=== PATIENT | female | born 1995 | race Caucasian/White ===

== ENCOUNTER → 2016-04-13 | Outpatient (CLI) | payer OTHER ==
[~2016-04-13] MED LIST: OXYC-57 PO; PRENTAB65 PO
[2016-04-13 17:35] LABS: URINE APPEARANCE CLOUDY (CLEAR); URINE BILIRUBIN NEG (NEG); URINE COLOR YELLOW; URINE EPITHELIAL CELL AUTO >30 /lpf (0-5); URINE NITRITE NEG (NEG); URINE PH 6.5 (4.5-7.5); URINE SPECIFIC GRAVITY 1.013 (1.000-1.030); UROBILINOGEN NEG (NEG)
[2016-04-13 17:39] LABS: MANUAL MICROSCOPIC REQUIRED? NO; REVIEW REQ? NO
== END | disposition home or self-care (01) ==
LOC: MERGE 16:52 → C.LABSPEC 16:52
PROVIDERS: ATTEND Obstetrics & Gynecology
DX: Z34.91 Encounter for supervision of normal pregnancy, unspecified, first trimester (principal)

== ENCOUNTER → 2016-04-14 | Outpatient (CLI) | payer OTHER ==
[2016-04-14 14:40] LABS: BASO % 0.4 %; BASO ABS # 0.04 K/uL (0-0.2); COMPLETE YES; EOS % 2.1 %; HEMATOCRIT 36.7 % (37-47); IG% 0.1 %; LYMPH % 18.9 %; LYMPH ABS # 1.87 K/uL (1.2-3.4); MEAN CELL VOLUME 85.3 fL (80-100); MEAN CORPUSCULAR HEMOGLOBIN 29.3 pg (25-34); MEAN CORPUSCULAR HGB CONC 34.3 g/dl (32-36); MONO % 5.6 %; NEUT % 72.9 %; PLATELET COUNT 218 K/uL (130-400); WHITE BLOOD COUNT 9.92 K/uL (4.8-10.8)
[2016-04-18 03:25] LABS: CHLAMYDIA TRACH RNA*** NOT DETECTED (NOT DETECTED); GC (NEIS GONORRHOEAE)RNA** NOT DETECTED (NOT DETECTED)
== END | disposition home or self-care (01) ==
LOC: C.LAB1850 12:54 → MERGE 12:54
PROVIDERS: ATTEND Obstetrics & Gynecology
DX: Z34.91 Encounter for supervision of normal pregnancy, unspecified, first trimester (principal)

== ENCOUNTER → 2016-05-19 | Outpatient (CLI) | payer OTHER ==
[2016-05-19 16:15] LABS: GTGD 50 Grams
[2016-05-22 14:34] LABS: AFP CONCENTRATION 27.7 NG/ML; AFP MULTIPLE OF MEDIAN 0.93; AFPTS GESTATIONAL AGE 16.6 WEEKS; AFPTS INSULIN DEP DIABETIC? NO; AFPTS MATERNAL WT 194 LBS; ALPHA-FETOPROTEIN RACE CAUCASIAN=W; HISTORY OF NTD NO; REPEAT SAMPLE? NO
== END | disposition home or self-care (01) ==
LOC: C.LAB1850 13:54 → MERGE 13:54
PROVIDERS: ATTEND Obstetrics & Gynecology
DX: Z34.92 Encounter for supervision of normal pregnancy, unspecified, second trimester (principal)

== ENCOUNTER → 2016-08-10 | Outpatient (CLI) | payer OTHER ==
[2016-08-10 16:01] LABS: HEMATOCRIT 33.9 % (37-47)
[2016-08-10 18:43] LABS: GTGD 50 Grams
== END | disposition home or self-care (01) ==
LOC: MERGE 14:42 → C.LAB1850 14:42
PROVIDERS: ATTEND Obstetrics & Gynecology
DX: Z34.93 Encounter for supervision of normal pregnancy, unspecified, third trimester (principal)

== ENCOUNTER → 2016-08-10 | Outpatient (CLI) | payer OTHER ==
[2016-08-10 18:12] LABS: URINE APPEARANCE CLEAR (CLEAR); URINE BILIRUBIN NEG (NEG); URINE COLOR YELLOW; URINE EPITHELIAL CELL AUTO 20-30 /lpf (0-5); URINE NITRITE NEG (NEG); URINE SPECIFIC GRAVITY 1.011 (1.000-1.030); UROBILINOGEN NEG (NEG)
[2016-08-10 18:21] LABS: MANUAL MICROSCOPIC REQUIRED? NO; REVIEW REQ? NO
== END | disposition home or self-care (01) ==
LOC: C.LABSPEC 16:28 → MERGE 16:28
PROVIDERS: ATTEND Obstetrics & Gynecology
DX: Z34.93 Encounter for supervision of normal pregnancy, unspecified, third trimester (principal)

== ENCOUNTER → 2016-08-21 | Outpatient (CLI) | payer OTHER | END | disposition home or self-care (01) | LOC: C.LAB1850 08:36 | PROVIDERS: ATTEND Obstetrics & Gynecology | DX: O28.1 Abnormal biochemical finding on antenatal screening of mother (principal) ==

== ENCOUNTER → 2016-10-05 | Outpatient (CLI) | payer OTHER | END | disposition home or self-care (01) | LOC: C.LABSPEC 14:57 | PROVIDERS: ATTEND Obstetrics & Gynecology | DX: Z34.83 Encounter for supervision of other normal pregnancy, third trimester (principal) ==

== ENCOUNTER 2016-10-27 05:28 | Inpatient (IN) | payer OTHER ==
--- NOTE | 2016-10-26 13:38 | HISTORY & PHYSICAL EXAMINATION ---
DATE OF ADMISSION: 10/27/2016 PRINCIPAL DIAGNOSES: 1. Intrauterine at 39 weeks. 2. History of prior section, requesting repeat section. PRINCIPAL PROCEDURE: Repeat low transverse cervical section. HISTORY OF PRESENT ILLNESS: The patient is a 21-year-old 2, para 1-0-0-1 white female, EDC of 10/30/2016, who presents for repeat section. Her prior section was done because of hypotension and distress. The section had been done under general anesthetic. This has been uncomplicated. PAST MEDICAL HISTORY: Significant for exercise-induced asthma and migraine headaches. PAST SURGICAL HISTORY: She had a cholecystectomy, tonsils and wisdom teeth removed and a section in 2013. ALLERGIES: She has no known drug allergies. MEDICATIONS: vitamins. OBSTETRICAL AND GYNECOLOGICAL HISTORY: No history of PID, VD or herpes. Pap smears are within normal limits. Periods are regular at every 28 days. She has had 1 in 2013, resulting in a section done under general anesthetic because of distress. That baby weighed 8 pounds 8 ounces. No complications after the surgery. HISTORY: Blood type is B positive. Antibody screen is negative. Rubella is immune. RPR is nonreactive. Hepatitis is negative. HIV is negative. Chlamydia and GC are negative. The 16-week Glucola was normal. The 28-week Glucola was elevated, but 2-hour glucose tolerance test was within normal limits. Anatomy scan was normal and complete. Hemoglobin at 28 weeks is 11.6 and hematocrit 33.9. GBS is negative. PHYSICAL EXAMINATION: GENERAL: She is a well-nourished and well-developed female in no apparent distress. LUNGS: Clear to auscultation. HEART: Regular rate and rhythm. No murmurs or gallops. ABDOMEN: Gravid and consistent with a term in size. There is no hepatosplenomegaly or masses palpable. She has a well-healed low transverse skin incision. EXTREMITIES: Without calf tenderness and trace edema. ASSESSMENT: A 21-year-old who presents for repeat section. Prior section was done emergently because of distress. Please see the orders for further directions.
[2016-10-26 14:46] VITALS: BMI 35.0
--- NOTE | 2016-10-26 15:05 | PAT Medication Instructions ---
Service Date Oct 26, 2016. Current Home Medication List Multivit-Min W/Fe-Fa (), 1 TAB PO QAM Medication Instructions For Your Scheduled Surgery - Hold the following medications the morning of surgery: Multivit-Min W/Fe-Fa (), 1 TAB PO QAM nothing to eat or drink after midnight If you have any questions please call us at [phone] or [phone] or [phone]
[2016-10-26 15:20] LABS: BASO % 0.1 %; BASO ABS # 0.01 K/uL (0-0.2); COMPLETE YES; EOS % 1.2 %; HEMATOCRIT 37.1 % (37-47); IG% 0.2 %; LYMPH % 15.8 %; LYMPH ABS # 1.49 K/uL (1.2-3.4); MEAN CELL VOLUME 85.7 fL (80-100); MEAN CORPUSCULAR HEMOGLOBIN 27.3 pg (25-34); MEAN CORPUSCULAR HGB CONC 31.8 g/dl (32-36); MONO % 5.9 %; NEUT % 76.8 %; PLATELET COUNT 185 K/uL (130-400); RED BLOOD COUNT 4.33 M/uL (4.2-5.4); WHITE BLOOD COUNT 9.42 K/uL (4.8-10.8)
[2016-10-27] VITALS (14 sets, daily range): BP systolic 102–105; BP diastolic 68–71; PULSE 82–84; TEMP 36.6; O2SAT 95–98; Ht 165.1 cm; Wt 97.7 kg
[~2016-10-27] VITALS: Ht 165.1 cm; Wt 97.7 kg
[~2016-10-27 05:28] MED LIST changes: +CEFAZOLIN IV 3,000 MG in DEXTROSE 5% 50ML IV SCH; -OXYC-57 PO
[2016-10-27] MEDS ORDERED: LACTATED RINGER'S 1000ML 1,000 ML IV SCH (06:00)
[2016-10-27] MEDS ORDERED: CITRIC ACID/SODIUM CITRATE 15 ML UDC PO SCH (06:00)
[2016-10-27 06:37] LABS: BASO % 0.3 %; BASO ABS # 0.03 K/uL (0-0.2); IG% 0.3 %; LYMPH % 12.4 %; LYMPH ABS # 1.45 K/uL (1.2-3.4); MEAN CELL VOLUME 84.4 fL (80-100); MEAN PLATELET VOLUME 12.1 fL (7.4-10.4); MONO % 5.5 %; NEUT % 80.5 %; PLATELET COUNT 194 K/uL (130-400); WHITE BLOOD COUNT 11.66 K/uL (4.8-10.8)
[2016-10-27 06:46] LABS: COMPLETE YES; MEAN CORPUSCULAR HGB CONC 33.2 g/dl (32-36)
--- NOTE | 2016-10-27 07:27 | History & Physical Bridge Note ---
H&P Re-Evaluation Bridge Note: I have examined the patient, reviewed the History & Physical and in the interval since the performance of the History & Physical I have noted the following changes of clinical significance: No changes noted
[2016-10-27] MEDS ORDERED: MoRPHine SULFATE PF 1 MG/ML 10 ML AMP/VIAL ONE (08:41)
[2016-10-27] MEDS ORDERED: OXYTOCIN INJ 10 UNITS/ML VIAL ONE (09:27)
[2016-10-27] MEDS ORDERED: EpHEDrine SULFATE INJ 50 MG/ML AMP ONE (09:27)
[2016-10-27] MEDS ORDERED: LABETALOL HCL IV 5 MG/ML 20ML IV PRN (09:45)
[2016-10-27] MEDS ORDERED: DIPHTHERIA/TETANUS/PERTUSSIS 0.5 ML SYR/VIAL IM. ONE (09:45)
[2016-10-27] MEDS ORDERED: FENTANYL CITRATE INJ 50 MCG/1 ML 2 ML VIAL IV PRN (09:45)
[2016-10-27] MEDS ORDERED: HYDROCORTISONE ACETATE 25 MG SUPP PR PRN (09:45)
[2016-10-27] MEDS ORDERED: MEPERIDINE HCL 25 MG/ML CARP IV PRN ×2 (09:45→11:00)
[2016-10-27] MEDS ORDERED: EpHEDrine SULFATE INJ 50 MG/ML AMP IV PRN ×2 (09:45→11:00)
[2016-10-27] MEDS ORDERED: SUPERCREAM 0.870 % 15GM JAR EXT PRN (09:45)
[2016-10-27] MEDS ORDERED: ONDANSETRON INJ 2 MG/ML 2 ML VIAL IV PRN ×2 (09:45→11:00)
[2016-10-27] MEDS ORDERED: SENNA 8.6 MG TAB PO PRN (09:45)
[2016-10-27] MEDS ORDERED: MAGNESIUM HYDROXIDE SUSP 30 ML UDC PO PRN (09:45)
[2016-10-27] MEDS ORDERED: ATROPINE SULFATE 0.1 MG/ML 5ML SYR IV PRN (09:45)
[2016-10-27] MEDS ORDERED: HYDROmorphone INJ 1 MG/ML SYR IV PRN (09:45)
[2016-10-27] MEDS ORDERED: BENZOCAINE 20% AER SPR 82.5 GM CAN EXT PRN (09:45)
[2016-10-27] MEDS ORDERED: LANOLIN OINT EXT PRN ×2 (09:45)
--- NOTE | 2016-10-27 10:09 | [facility] Operative Report ---
Operative Report Operative Date Oct 27, 2016. Pre-Operative Diagnosis Intrauterine . Desires repeat section. Post-Operative Diagnosis Same. Procedure(s) Performed Elective repeat low transverse section. Surgeon Dr. Davison Plug Shaper Hand Surgeon(s) Dr. Ca Estimated Blood Loss 600 Findings gravid uterus , tubes & ovaries are grossly normal. Fluids 2000 Specimens A. Placenta - hold B. Cord blood Drains John to straight drainage Anesthesia SAB Complication(s) None Disposition L&D I attest to the content of the Intraoperative Record and any orders documented therein. Any exceptions are noted below.
[2016-10-27] MEDS ORDERED: SODIUM CHLORIDE 0.9% 1000ML 1,000 ML IV PRN (10:49)
[2016-10-27] MEDS ORDERED: NALOXONE HCL INJ 1 MG in SODIUM CHLORIDE 0.9% 1000ML 1,000 ML IV PRN (10:49)
[2016-10-27] MEDS ORDERED: NALOXONE HCL INJ 0.08 MG in SYRINGE 1.8 ML IV PRN (10:49)
[2016-10-27] MEDS ORDERED: LACTATED RINGER'S 1000ML 500 ML IV PRN (10:49)
[2016-10-27] MEDS ORDERED: METOCLOPRAMIDE HCL INJ 20 MG in SODIUM CHLORIDE 0.9% 50ML 50 ML IV PRN (11:00)
[2016-10-27] MEDS ORDERED: NO NARCOTICS OR SEDATIVES SCH (11:00)
[2016-10-27] MEDS ORDERED: NALOXONE HCL 0.4 MG/1 ML VIAL/CARP IV PRN (11:00)
[2016-10-27] MEDS ORDERED: DiphenhydrAMINE HCL 50 MG/ML VIAL IV PRN ×2 (11:00)
[2016-10-27] MEDS ORDERED: KETOROLAC TROMETHAMINE 30 MG/ML VIAL IV. PRN (11:00)
[2016-10-27] MEDS ORDERED: MoRPHine SULFATE 2 MG/ML CARP IV PRN (11:00)
[2016-10-27] MEDS ORDERED: MoRPHine SULFATE PF 1 MG/ML 10 ML AMP/VIAL EPI PRN (11:00)
[2016-10-27] MEDS ORDERED: NALBUPHINE HCL INJ 10 MG/ML AMP IV PRN (11:00)
[2016-10-27] MEDS: SIMETHICONE 80 MG CHEW PO SCH ×3 (12:13→20:09)
[2016-10-27] MEDS: OXYTOCIN INJ 20 UNITS in LACTATED RINGER'S 1000ML 1,000 ML IV SCH ×2 (12:22→20:22)
--- NOTE | 2016-10-27 13:02 | Anesthesiology Progress Note ---
Anesthesia Post Op Note Date & Time Oct 27, 2016 at 13:02 Vital Signs Pain Intensity: 3.0 Notes Mental Status: alert / awake / arousable, participated in evaluation Pt Amnestic to Procedure: Yes Nausea / Vomiting: adequately controlled Pain: adequately controlled Airway Patency, RR, SpO2: stable & adequate BP & HR: stable & adequate Hydration State: stable & adequate Neuraxial Anesthesia: was administered, sensory block is resolving Anesthetic Complications: no major complications apparent
--- NOTE | 2016-10-27 16:02 | OPERATIVE REPORT ---
DATE OF OPERATION: 10/27/2016 SURGEON: Bere Gilmore MD SHOE FOLDER: Dr. Sandie Ca, PGY1. PREOPERATIVE DIAGNOSES: Intrauterine at 39 weeks, prior section, requesting repeat section. POSTOPERATIVE DIAGNOSES: Same plus delivery of a viable male , 8 pounds 0 ounces. PROCEDURE: Repeat low transverse cervical section. ANESTHESIA: Subarachnoid block. ESTIMATED BLOOD LOSS: 600 mL. HISTORY: The patient is a 21-year-old 2, para 1-0-0-1 white female, EDC of 10/30/2016, who presented for repeat section. Her prior section was done following hypertension episode and distress. The patient is requesting repeat section with this . She understands the risks of the procedure and is willing to proceed. GROSS FINDINGS: Uterus is gravid and consistent with a term in size. Bilateral ovaries and fallopian tubes are grossly normal. DESCRIPTION OF PROCEDURE: After the patient received adequate subarachnoid block, she was prepped and draped in the usual sterile fashion. A low transverse skin incision was made through her prior scar and carried to the fascia with the same scalpel. The fascial incision was then extended with Cortez scissors and the underlying rectus muscles bluntly and sharply dissected off the overlying fascia. The peritoneum was entered sharply and the bladder was then taken down off the anterior surface of the uterus with Metzenbaum scissors and placed behind the bladder blade. The lower uterine segment was entered with the scalpel and extended transversely. Membranes were ruptured for clear fluid. The was presenting direct occiput posterior and after flexing, the head was delivered easily through the uterine incision with moderate fundal pressure. Mouth and nasopharynx were suctioned on the operating room table. The rest of the infant delivered without difficulty. There was a body cord noted at the time of delivery. The cord was clamped and cut and the was handed off to Dr. Adkins, who was in attendance as photolith operator. Placenta was expressed intact with a 3-vessel cord. The uterine cavity was explored and found to be free of any placental tissues or membranes. The uterus was closed then in 2 layers in a running locking imbricating fashion with 0 Monocryl. The hemostasis was noted to be excellent. The posterior cul-de-sac was then irrigated with normal saline. The incision was examined once more and continued to have excellent hemostasis. After putting the uterus back in the abdominal cavity, the gutters were explored and found to be free of any clot or fluid. The anterior cul-de-sac was irrigated with normal saline as well. The incision was examined once more and continued to have excellent hemostasis. The rectus muscles were then brought together on the midline with individual stitches of 0 Monocryl. The fascia was closed in a running fashion with 0 Vicryl. After irrigating the adipose layer, the skin edges were reapproximated using a subcuticular stitch of 4-0 Vicryl. Urine was clear at the end of the case. The patient tolerated the procedure well and was stable upon arrival in the recovery room. I attest to the content of the Intraoperative Record and any orders documented therein. Any exception s are noted below.
[2016-10-27] MEDS: DOCUSATE SODIUM 100 MG CAP PO SCH (20:09)
[2016-10-28] VITALS (7 sets, daily range): BP systolic 101–121; BP diastolic 66–80; PULSE 77–84; TEMP 36.5–36.9; O2SAT 97–98
[2016-10-28] MEDS ORDERED: DC INTRASPINAL MORPHINE SCH (02:45)
[2016-10-28] MEDS ORDERED: ONDANSETRON INJ 2 MG/ML 2 ML VIAL IV PRN (02:46)
[2016-10-28] MEDS ORDERED: KETOROLAC TROMETHAMINE 30 MG/ML VIAL IV. PRN (02:46)
[2016-10-28] MEDS ORDERED: ZOLPIDEM TARTRATE 5 MG TAB PO PRN (02:46)
[2016-10-28] MEDS ORDERED: OXYCODONE/ACETAMINOPHEN 5-325 TAB PO PRN (02:46)
[2016-10-28] MEDS ORDERED: DiphenhydrAMINE HCL 50 MG/ML VIAL IV PRN (02:46)
[2016-10-28 06:47] LABS: BASO % 0.2 %; BASO ABS # 0.02 K/uL (0-0.2); COMPLETE YES; EOS % 0.9 %; HEMATOCRIT 33.1 % (37-47); IG% 0.3 %; LYMPH % 11.7 %; LYMPH ABS # 1.25 K/uL (1.2-3.4); MEAN CELL VOLUME 84.2 fL (80-100); MEAN CORPUSCULAR HEMOGLOBIN 27.2 pg (25-34); MEAN CORPUSCULAR HGB CONC 32.3 g/dl (32-36); MEAN PLATELET VOLUME 11.5 fL (7.4-10.4); MONO % 6.6 %; NEUT % 80.3 %; PLATELET COUNT 166 K/uL (130-400); RED BLOOD COUNT 3.93 M/uL (4.2-5.4); WHITE BLOOD COUNT 10.67 K/uL (4.8-10.8)
--- NOTE | 2016-10-28 06:50 | Progress Note ---
Subjective Oct 28, 2016. Subjective conversation w/ patient, physical exam Ambulation: ambulating normally Voiding: no voiding problems Passing Gas: Yes Diet Tolerance: Clear Liquids Lochia: Small Feeding Type: Breast Feeding Review of Systems Constitutional: No fever, No chills, No sweats, No weight loss, No weakness, No fatigue, No problem reported Breast: No see HPI, No breast lump, No change in shape, No nipple discharge, No breast pain, No problem reported Abdomen: No pain, No nausea, No vomiting, No diarrhea, No constipation, No GI bleeding, No problem reported Female : No see HPI, No dysuria, No urinary frequency, No hematuria, No incontinence, No abnormal vaginal bleeding, No vaginal discharge, No problem reported Objective Vital Signs Date Time Temp Pulse Resp B/P (MAP) Pulse Ox O2 Delivery O2 Flow Rate FiO2 10/28/16 02:45 36.8 77 18 106/70 (82) 97 Room Air 10/28/16 02:45 18 97 10/28/16 01:30 16 97 10/28/16 00:30 20 97 10/27/16 23:37 Room Air 10/27/16 23:37 36.6 82 18 102/68 (79) 98 Room Air 10/27/16 23:30 18 98 10/27/16 22:30 18 97 10/27/16 21:30 18 97 10/27/16 20:30 20 97 10/27/16 19:30 36.6 84 20 105/71 (82) 98 Room Air 10/27/16 19:30 20 98 10/27/16 19:15 Room Air 10/27/16 18:30 20 98 10/27/16 17:30 16 96 10/27/16 16:30 16 95 10/27/16 15:55 97 Room Air 10/27/16 15:30 16 95 10/27/16 14:30 16 96 10/27/16 13:30 20 97 10/27/16 12:25 97 Room Air 10/27/16 12:25 20 97 10/27/16 12:25 97 Room Air Physical Exam General Appearance: WELL-APPEARING, NO APPARENT DISTRESS Abdomen: soft Fundus: Firm, Non-Tender, Relation to Umbilicus (2 below U) Incision Description: Clean, Dry & Intact Extremities: no calf tenderness Laboratory Results Last 24 Hours Test 10/28/16 06:30 Assessment and Plan Day#: 1 Continue Routine Care: stable post-op & course continue current care plan.
--- NOTE | 2016-10-28 07:02 | Discharge Instructions ---
Discharge Instructions Date of Service Oct 28, 2016. Admission Reason for Admission: Repeat Discharge Discharge Diagnosis / Problem: DELIVERY Discharge Goals Goal(s): Routine recovery after Medications Continue Dispensed Medications: supercream, dermaplast, tucks, lansinoh Activity Recommendations Activity Limitations: per Instructions/Follow-up section . Instructions / Follow-Up Instructions / Follow-Up ACTIVITY RECOMMENDATIONS: * Gradual return to full activity over the next 2-3 weeks. * No lifting - nothing heavier than baby over the next 2-3 weeks. * Do not engage in vigorous exercise, sexual activity or sports until cleared by your physician. * Do not drive or operate any motorized equipment until cleared by your physician. * You may shower/bathe daily. MEDICATIONS: For discomfort or pain, you may use Acetaminophen (Tylenol), Ibuprofen (Advil), or Naproxen (Aleve) following the package directions. For constipation you may use Colace following the package directions. BREAST CARE: If you are not breast feeding: * Wear a supportive bra 24 hours a day for one to two weeks. * Avoid stimulating your breasts and nipples as much as possible during the first few weeks after delivery. * When taking a shower, have the warm water hit your back, not breasts. * When your breasts feel full, apply ice packs. Usually three to four times a day helps ease the discomfort. * Take a mild pain medication (Tylenol / Motrin) when you are uncomfortable. If breast feeding: * Use breast milk to lubricate nipples. Lansinoh cream may be used for sore nipples. You do not need to remove cream prior to breast feeding. If using a different brand of cream, check the label for directions regarding removal of cream prior to nursing. * Wear a supportive bra. * If having problems with breasts or breast feeding, call a ada accommodation consultant or your health care provider. SPECIAL CARE INSTRUCTIONS: When you are discharged from the hospital, it is important for you to follow the instructions listed below: * During the first week at home, you should be able to care for yourself and your baby. In addition, the usual light household activities are encouraged. * Limit your activities to the way you feel. Do not try to clean the house or move furniture. Be sensible. * If you actively engage in sports and have done so up until the time of your delivery, you may resume these activities as soon as you feel able. This may take up to one month or even longer. Use good judgment. * Continue to take your vitamins for at least six weeks after the of your baby. * Your diet need not be limited unless you were on a special diet before your delivery. Breast-feeding mothers need around 2500 calories per day and at least 64-80 ounces of fluid per day (8 to 10 glasses). * You should eat foods from the four major food groups. Crash diets or fad diets are to be avoided. Eating lean meats, fresh fruits and vegetables, low-fat dairy products, high fiber foods and a regular exercise program, will help you get back to your pre- weight without putting your health at risk. * Constipation is sometimes a problem after delivery. Take a mild laxative as needed. If breast feeding, Milk of Magnesia is acceptable to use. You may use a suppository or Fleets enema. * A daily shower or tub bath is suggested. Wash incision daily with warm soapy water and pat dry. It doesn't need to be covered unless drainage is present. * A bloody vaginal discharge will usually continue until around four weeks . A small amount of bleeding may continue for as long as six weeks. Vaginal discharge changes from the bright red bleeding after delivery to pink then brownish and finally yellowish-pink before becoming white and disappearing. * Bleeding may increase with activity. Your first period may come in 4-8 weeks. If you are breast feeding, your period may be delayed even longer. * [place] (sex) can begin whenever both you and your partner feel comfortable and do not have any form of genital infection. It is recommended that you wait at least six weeks for internal and external healing to occur. If you have questions, please talk to your health care practitioner. A condom should be used to prevent infection and . * Foreplay, gentle intercourse and lubrication is very important the first several times to prevent pain. A water-based lubricant such as K-Y jelly or Astroglide may be used. * If you have RH negative blood and your baby is RH positive, you will receive RHOGAM by injection prior to discharge. The nurse will give you a card to keep with you that has the date and place that you received RHOGAM after delivery. * During your care, you had a Rubella screen done to check for the presence of rubella antibodies in your blood. If your test was negative, you will receive a Rubella vaccine prior to discharge. This vaccine may cause a fever, soreness at the injection site and flu-like symptoms. If these symptoms persist, notify your health care practitioner. is not advised for one month after a Rubella vaccine. * Verbalizes understanding of car seat law as reviewed with patient nursing. * Car Seat hand-out given and reviewed with patient by nursing. * Shaken baby information reviewed with patient by nursing. Call you doctor if: * Heavy bleeding (saturating several pads an hour) or passing clots the size of your fist. * A fever >101 degrees F (38.3 degrees C) on two occasions four hours apart and /or chills. * Unusual pain in the pelvic or vaginal areas. * Call the doctor for any increased redness, drainage or swelling around the incision and any pain unrelieved by prescribed pain medication. * "Baby Blues" lasting longer than two weeks. If you have any questions or concerns, call your health care practitioner at . FOLLOW UP VISIT: * Please call the office at to schedule a 6 week examination. It is important you keep this appointment. It is important for you to make arrangements for either yearly or twice yearly check-ups thereafter. Current Hospital Diet Patient's current hospital diet: Clear Liquid Diet Discharge Diet Recommended Diet: Regular Diet Procedures Procedures Performed: Elective repeat low transverse section. Pending Studies Studies pending at discharge: no Medical Emergencies . Who to Call and When: Medical Emergencies: If at any time you feel your situation is an emergency, please call [phone] immediately. . Non-Emergent Contact Non-Emergency issues call your: Primary Care Provider . . "Provider Documentation" section prepared by Sandie Ca. . VTE Core Measure Inpt VTE Proph given/why not?: SCD's
[2016-10-28] MEDS ORDERED: [UNRECOGNIZED DRUG - OTHER] PO SCH (08:00)
[2016-10-28] MEDS: DOCUSATE SODIUM 100 MG CAP PO SCH ×2 (08:25→20:15)
[2016-10-28] MEDS: FERROUS SULFATE 325 MG TAB PO SCH (08:26)
[2016-10-28] MEDS: PRENATAL VITAMIN TAB PO SCH (08:26)
[2016-10-28] MEDS: IBUPROFEN 600 MG TAB PO PRN ×3 (08:26→23:35)
[2016-10-28] MEDS: SIMETHICONE 80 MG CHEW PO SCH ×4 (08:27→20:15)
[2016-10-28] MEDS: OXYCODONE/ACETAMINOPHEN 5-325 TAB PO PRN ×3 (08:27→23:35)
[2016-10-28] MEDS ORDERED: BISACODYL 5 MG TABEC PO ONE (22:00)
[2016-10-29 07:07] LABS: HEMATOCRIT 28.3 % (37-47)
--- NOTE | 2016-10-29 08:02 | Progress Note ---
Subjective Oct 29, 2016. Subjective conversation w/ patient, physical exam Ambulation: ambulating normally Voiding: no voiding problems Passing Gas: Yes Diet Tolerance: Regular Diet Lochia: Moderate Feeding Type: Breast Feeding Pain: controlled Review of Systems Constitutional: No problem reported Respiratory: No problem reported Cardiac: No problem reported Breast: No problem reported Abdomen: No problem reported Female : No problem reported Objective Vital Signs Date Time Temp Pulse Resp B/P (MAP) Pulse Ox O2 Delivery O2 Flow Rate FiO2 10/28/16 23:45 36.5 82 20 121/80 (94) 98 Room Air 10/28/16 23:45 98 Room Air 10/28/16 16:05 97 Room Air 10/28/16 15:00 36.7 84 16 115/77 (90) 97 Room Air 10/28/16 08:15 Room Air 10/28/16 08:15 36.9 81 20 101/66 (78) Room Air Physical Exam General Appearance: WELL-APPEARING, NO APPARENT DISTRESS Respiratory/Chest: no respiratory distress Cardiovascular: regular rate, rhythm Abdomen: non tender, soft Fundus: Firm Incision Description: Clean, Dry & Intact Extremities: normal inspection Laboratory Results Last 24 Hours Test 10/29/16 06:39 Hemoglobin 9.2 g/dL Hematocrit 28.3 % Assessment and Plan Post-Op Day#: 2 Continue Routine Care: POD#2 doing well. Requesting discharge today. Reviewed discharge instructions, followup 6w in office. Rx percocet. PAPDMP reviewed.
[2016-10-29] MEDS ORDERED: OXYC-57 PO (08:04)
[2016-10-29] MEDS: FERROUS SULFATE 325 MG TAB PO SCH (08:08)
[2016-10-29] MEDS: SIMETHICONE 80 MG CHEW PO SCH (08:08)
[2016-10-29] MEDS: DOCUSATE SODIUM 100 MG CAP PO SCH (08:08)
[2016-10-29] MEDS: PRENATAL VITAMIN TAB PO SCH (08:08)
[2016-10-29] MEDS: OXYCODONE/ACETAMINOPHEN 5-325 TAB PO PRN (08:09)
[2016-10-29] MEDS: IBUPROFEN 600 MG TAB PO PRN (08:09)
[2016-10-29 08:20] VITALS: BP 123/86; PULSE 73; TEMP 36.4
[2016-10-29 14:17] VITALS: BP_DIAS 86; PULSE 73; TEMP 36.4
--- NOTE | 2016-11-03 10:04 | DISCHARGE SUMMARY ---
PRINCIPAL DIAGNOSES: Intrauterine at 39 weeks and prior section. PRINCIPAL PROCEDURE: Repeat low transverse cervical section. HISTORY: The patient is a 21-year-old 2, para 1-0-0-1 white female, EDC of 10/30/2016, who presents for repeat section. She underwent the repeat section without any complications. She had an uncomplicated postop course. She remained afebrile throughout her hospital stay. She was eating regular diet on her first postop day and ambulating and voiding without difficulty. Hemoglobin on admission was 11.8 and hematocrit of 37.1. First postop day hemoglobin 10.7 and hematocrit 33.1. Second postop day hemoglobin 9.2 and hematocrit 28.3. She was sent home in good condition with prescriptions for Percocet 1 or 2 tablets p.o. q. 4 hours p.r.n. pain, Motrin 600 mg p.o. q. 4 hours p.r.n. pain, and iron 325 mg daily for the next 6 weeks. She is to be seen in the office for a followup visit in 6 weeks. She is to call for a temperature of 101 degrees or higher, heavy vaginal bleeding, burning with urination, increased redness, drainage or pain in her incision, calf tenderness or any other concerns.
== END 2016-10-29 14:26 | disposition home or self-care (01) | DRG 766 ==
LOC: C.OBG 05:28 → EDSTATUS 07:30
PROVIDERS: ADMIT Obstetrics & Gynecology; ATTEND Obstetrics & Gynecology
PROC: 10D00Z1 Extraction of Products of Conception, Low, Open Approach (ICD-10-PCS; principal; 2016-10-27 07:30)
DX: O34.211 Maternal care for low transverse scar from previous cesarean delivery (principal); Z37.0 Single live birth; Z3A.39 39 weeks gestation of pregnancy